=== PATIENT | female | born 1955 | race Two or more races ===

== ENCOUNTER 2022-04-01 12:50 | Emergency (ER) | payer OTHER, BC ==
[~2022-04-01] VITALS: Ht 165.1 cm; Wt 74.8 kg
[~2022-04-01 12:50] MED LIST: IBUPROFEN800 MG PO; ORPH100T PO
== END 2022-04-01 15:03 | disposition home or self-care (01) ==
LOC: ER 12:50
DX: M12.572 Traumatic arthropathy, left ankle and foot (principal); T14.90XS Injury, unspecified, sequela; W19.XXXS Unspecified fall, sequela; Z91.040 Latex allergy status